=== PATIENT | female | born 1975 | race Caucasian/White ===

== ENCOUNTER 2017-11-06 07:44 | Emergency (ER) | payer OTHER ==
[~2017-11-06] VITALS: Ht 175.3 cm; Wt 133.9 kg
[~2017-11-06 07:44] MED LIST: ALBU8.5H8 IH; CLIN150C2 PO
[2017-11-06 07:48] VITALS: BP 156/88
[2017-11-06] MEDS ORDERED: TETanus/Pertussis (Acell)/Diphther VAC/PF (Tdap-Adult) 0.5ml syringe IM ONE (08:40)
[2017-11-06] MEDS ORDERED: BUPIVAcaine/PF 2.5 mg/ml (0.25%) 30ml vial IJ ONE (08:40)
[2017-11-06] MEDS ORDERED: BUPIVAcaine/PF 2.5mg/ml (0.25%) 10ml vial IJ ONE (08:50)
== END 2017-11-06 10:02 | disposition home or self-care (01) ==
LOC: ER 07:45
DX: S61.412A Laceration without foreign body of left hand, initial encounter (principal); J45.909 Unspecified asthma, uncomplicated; Z88.5 Allergy status to narcotic agent; Z91.040 Latex allergy status; Z79.2 Long term (current) use of antibiotics; W26.0XXA Contact with knife, initial encounter; Y93.89 Activity, other specified; Y92.89 Other specified places as the place of occurrence of the external cause; Y99.8 Other external cause status
CPT/HCPCS: 12002; 90471; 90715; 99283; A6449; J3490

== ENCOUNTER 2019-04-28 06:30 | Emergency (ER) | payer OTHER ==
[~2019-04-28] VITALS: Ht 175.3 cm; Wt 148.4 kg
[~2019-04-28 06:30] MED LIST changes: -CLIN150C2 PO
[2019-04-28 06:35] VITALS: BP 198/105
[2019-04-28] MEDS ORDERED: CLIN-97 PO (07:03)
== END 2019-04-28 07:17 | disposition home or self-care (01) ==
LOC: ER 06:30
DX: K02.9 Dental caries, unspecified (principal); K04.7 Periapical abscess without sinus; I10 Essential (primary) hypertension; J45.909 Unspecified asthma, uncomplicated; F17.200 Nicotine dependence, unspecified, uncomplicated; Z88.5 Allergy status to narcotic agent; Z91.040 Latex allergy status
CPT/HCPCS: 99283

== ENCOUNTER 2022-04-04 04:08 | Emergency (ER) | payer BC, OTHER ==
[~2022-04-04] VITALS: Ht 175.3 cm; Wt 145.4 kg
[~2022-04-04 04:08] MED LIST changes: +ALBU8.5H17 IH; -ALBU8.5H8 IH; +CLIN-97 PO
[2022-04-04 04:13] VITALS: BP 185/101
[2022-04-04] MEDS ORDERED: amox tr/potassium clavulanate 875/125mg TAB PO ONE (05:05)
[2022-04-04] MEDS ORDERED: AMOX-117 PO (05:06)
[2022-04-04] MEDS ORDERED: CHLO473M3 PO (05:07)
== END 2022-04-04 05:53 | disposition home or self-care (01) ==
LOC: ER 04:09
DX: K04.7 Periapical abscess without sinus (principal); I10 Essential (primary) hypertension; J45.909 Unspecified asthma, uncomplicated; F17.200 Nicotine dependence, unspecified, uncomplicated; Z88.5 Allergy status to narcotic agent; Z91.040 Latex allergy status; Z79.899 Other long term (current) drug therapy
CPT/HCPCS: 99283

== ENCOUNTER 2023-06-03 08:18 | Emergency (ER) | payer BC ==
[~2023-06-03] VITALS: Ht 175.3 cm; Wt 131.9 kg
[~2023-06-03 08:18] MED LIST changes: +CHLO473M3 PO
[2023-06-03] MEDS ORDERED: ketorolac trometh. 30mg/ml inj. IM ONE (09:45)
[2023-06-03 10:02] VITALS: RESP 18
[2023-06-03] MEDS: ketorolac tromethamine 15mg/ml inj. IM ONE (10:02)
[2023-06-03] MEDS: BUPIVAcaine 0.5% W/EPI /PF 30ml vial IJ STA (10:02)
[2023-06-03 10:30] VITALS: BP 158/101; PULSE 92; O2SAT 98
[2023-06-03 11:15] VITALS: TEMP 96.8
[2023-06-03] MEDS ORDERED: AMOX-101 PO (11:22)
== END 2023-06-03 11:41 | disposition home or self-care (01) ==
LOC: ER 08:19
DX: K08.89 Other specified disorders of teeth and supporting structures (principal); I10 Essential (primary) hypertension; J45.909 Unspecified asthma, uncomplicated; Z88.5 Allergy status to narcotic agent; Z91.040 Latex allergy status; Z79.2 Long term (current) use of antibiotics; Z79.899 Other long term (current) drug therapy
CPT/HCPCS: 64400; 96372; 99284; J1885; S0020